=== PATIENT | male | born 1975 | race Two or more races ===

== ENCOUNTER 2019-01-07 08:33 | Inpatient (IN) | payer OTHER ==
[~2019-01-07] VITALS: Ht 172.7 cm; Wt 114.3 kg
[2019-01-07 09:33] LABS: BASOPHILS % (AUTO) 0.5 % (0.0-2.0); EOSINOPHILS % (AUTO) 1.5 % (0.0-6.0); HEMATOCRIT 48 % (39-51); LYMPHOCYTES # (AUTO) 1.8 /CMM (0.8-4.8); LYMPHOCYTES % (AUTO) 29.3 % (20.0-44.0); MEAN CORPUSCULAR HGB CONC 34 g/dl (31.0-36.0); MEAN CORPUSCULAR VOLUME 89 fL (80-96); MONOCYTES # (AUTO) 0.4 /CMM (0.1-1.30); MONOCYTES % (AUTO) 7.3 % (2.0-12.0); NEUTROPHILS # (AUTO) 3.7 /CMM (1.8-8.9); NEUTROPHILS % (AUTO) 61.4 % (43.0-81.0); PLATELET COUNT (AUTO) 207 /CMM (150-450); RED BLOOD CELL COUNT(AUTO) 5.36 MIL/uL (4.5-6.0)
[2019-01-07 09:44] LABS: BILIRUBIN,TOTAL 0.5 mg/dL (0.2-1.0); CALCIUM, SERUM 8.8 mg/dL (8.5-10.1); CREATININE 0.8 mg/dL (0.6-1.3); TOTAL PROTEIN, SERUM 7.2 g/dL (6.4-8.2)
[2019-01-07 09:45] LABS: BILIRUBIN,URINE Negative (NEGATIVE); BLOOD, URINE Negative Ery/uL (NEGATIVE); COLOR,URINE Yellow (YELLOW); KETONES,URINE Negative (NEGATIVE); LEUKOCYTE ESTERASE ,URINE Negative (NEGATIVE); NITRITE, URINE Negative (NEGATIVE); PH,URINE 8.5 (5.0-8.0); PROTEIN,URINE Negative (NEGATIVE); UGLUCOSE Negative (NEGATIVE); UROBILINOGEN,URINE 0.2 EU/dL (0.2)
[2019-01-07 09:47] LABS: APPEARANCE,URINE CLEAR (CLEAR)
[2019-01-07] MEDS ORDERED: FENTANYL PF 250MCG/5ML AMPUL ONE ×2 (10:02)
[2019-01-07] MEDS ORDERED: MIDAZOLAM HCL 2 MG/2ML VIAL ONE (10:02)
[2019-01-07] MEDS ORDERED: FAMOTIDINE/PF INJ 20 MG/2 ML VIAL IV ONE (10:03)
[2019-01-07] MEDS ORDERED: ROCURONIUM BROMIDE 50 MG/5 ML ONE (10:04)
[2019-01-07] MEDS ORDERED: MEPERIDINE HCL/PF 100 MG/ML DISP.SYRIN ONE (10:04)
[2019-01-07] MEDS ORDERED: GELATIN SPONGE,ABSORBABLE 1 EA SPONGE TP ONE (10:18)
[2019-01-07] MEDS ORDERED: CEFAZOLIN 1 GM ONE (10:19)
[2019-01-07] MEDS ORDERED: THROMBIN (BOVINE) 5,000 UNITS VIAL TP ONE (10:19)
[2019-01-07] MEDS ORDERED: HEPARIN SODIUM, PORCINE 5000 UNITS/1 ML VIAL ONE (10:30)
[2019-01-07] MEDS ORDERED: BUPIVACAINE 0.5 % PF 150 MG/30 ML VIAL ONE (10:48)
[2019-01-07] MEDS ORDERED: HEMOSTATIC MATRIX 8 ML 1 EACH PAD MC ONE ×2 (11:03→12:38)
[2019-01-07] MEDS ORDERED: SEVOFLURANE 250 ML BOTTLE IH ONE (11:50)
[2019-01-07] MEDS ORDERED: VANCOMYCIN 1 GM VIAL ONE (16:01)
--- NOTE | 2019-01-07 17:45 | NUR ---
PATIENT RECEIVED FROM SURGERY ,S/P LUMBAR SURGERY PER DAY SURGERY AND MD NEED TO BE ADMITTED UNDER M/S,WILL ENDORSE TO NIGHT RN FOR CONTINUITY OF CARE AND ADMISSION.
[2019-01-07] MEDS: IV NS 0.9% 1,000 ML IV PRN (17:48)
[2019-01-07 18:00] VITALS: BP 138/69
[2019-01-07] MEDS ORDERED: ZOLPIDEM TARTRATE 5 MG TABLET PO PRN ×2 (18:00→19:00)
[2019-01-07] MEDS ORDERED: ONDANSETRON HCL/PF 4 MG/2 ML VIAL IVP PRN ×2 (18:00→19:00)
[2019-01-07] MEDS ORDERED: CYCLOBENZAPRINE 10 MG TABLET PO PRN (18:00)
[2019-01-07] MEDS ORDERED: ACETAMINOPHEN 325 MG TABLET PO PRN ×2 (18:00→19:00)
[2019-01-07] MEDS: HYDROMORPHONE MDV 30 MG in IV NS 0.9% 15 ML, PCA TOTAL VOLUME 1 BAG IV PRN ×3 (18:05)
[2019-01-07] MEDS ORDERED: KEY,NONCONTROL,TO KEEP IN PYXI 1 EA MC ONE (18:10)
--- NOTE | 2019-01-07 18:15 | NUR ---
CLARIFIED WITH PATIENT HAS CONSULT WITH HOSPITALIST,PER MD NIGHT OYSTER CULTIVATOR WILL ADRESS PATIENT.
--- NOTE | 2019-01-07 18:17 | NUR ---
PRIMARY RN PREPARING PATIENT ELECTRICAL AND RADIO MOCK UP MECHANIC.
--- NOTE | 2019-01-07 18:31 | NUR ---
DR. ARTEAGA WILL SEE PATIENT NOW.
--- NOTE | 2019-01-07 18:41 | NUR ---
PATIENT SEEN AND EVALUATED BY DR. ARTEAGA
[2019-01-07 18:45] VITALS: BP 135/51
[2019-01-07] MEDS ORDERED: TIZA4TAB5 PO (18:45)
[2019-01-07] MEDS ORDERED: TRAM50TA2 PO (18:45)
[2019-01-07] MEDS ORDERED: CYCL10TA9 PO (18:45)
[2019-01-07] MEDS ORDERED: MAGNESIUM HYDROXIDE 30 ML UDC PO PRN (19:00)
[2019-01-07] MEDS ORDERED: Z GUARD REMEDY 2 OZ OINT TP PRN (19:00)
[2019-01-07] MEDS ORDERED: MAG HYDROX/AL HYDROX/SIMETH 30 ML UDC PO PRN (19:00)
[2019-01-07] MEDS ORDERED: MORPHINE SULFATE INJ 2 MG/ML DISP.SYRIN IV PRN (19:00)
[2019-01-07] MEDS ORDERED: oxyCODONE/APAP (5/325 MG) 1 UDTAB TABLET PO PRN ×2 (19:00)
[2019-01-07] MEDS ORDERED: HYDROCODONE/APAP 5/325MG 1 EACH TABLET PO PRN (19:00)
--- NOTE | 2019-01-07 19:00 | NUR ---
MS RN NOTES PT SEEN AND EVALUATED BY PAIN SPECIALIST .
--- NOTE | 2019-01-07 19:15 | NUR ---
RN OPENING NOTES: PATIENT IN BED, AWAKE, AND VERBALLY RESPONSIVE. NO RESPIRATORY DISTRESS. NO PAIN. A&OX4. PATIENT ON REGULAR DIET. RIGHT AC IV SITE PATENT AND INTACT. BED IN LOWEST POSITION. SAFETY MEASURES IMPLEMENTED. CALL LIGHT PLACED WITHIN REACH. WILL CONT. TO MONITOR.
--- NOTE | 2019-01-07 19:27 | NUR ---
MS RN END OF SHIFT NOTES PT IN ROOM HOB ELEVATED 30 DEG PER PT REQUEST. VS STABLE BUT WITH TACHYCARDIA. PT ON B OPERATOR PUMP; DISCOMFORT WITH MOVEMENT. FAMILY AT BEDSIDE. PT ON 2L NC. NO BLEEDING NOTED FROM SX SITES. PT ABLE TO MOVE LEGS AND HAVE SENSATION BILAT EXTREMITIES. SAFETY MEASURES IN PLACE. PULSE OXIMETRY IN PLACE. ENDORSED TO PM NURSE FOR ANGEL.
[2019-01-07 20:00] VITALS: BP 122/62
[2019-01-07] MEDS: FAMOTIDINE (20 MG) 20 MG TABLET PO SCH (20:05)
[2019-01-07] MEDS: CEFAZOLIN 2 GM in IV D5W 100 ML IV SCH (22:53)
[2019-01-08 04:00] VITALS: BP 103/53
[2019-01-08] MEDS: IV NS 0.9% 1,000 ML IV PRN ×3 (04:59→23:49)
--- NOTE | 2019-01-08 06:30 | NUR ---
RN NOTES: PATIENT SEEN BY DR. HA AND ORDERED TO REMOVE DORMAN CATHETER AND IMPLEMENT PHYSICAL THERAPY TODAY. REMOVED DORMAN CATHETER AND TOLERATED WELL BY PATIENT. NO BLEEDING OR PAIN NOTED. WILL CONT. TO MONITOR FOR CHANGES.
[2019-01-08 06:32] LABS: HEMATOCRIT 36 % (39-51); LYMPHOCYTES # (AUTO) 0.7 /CMM (0.8-4.8); LYMPHOCYTES % (AUTO) 6.1 % (20.0-44.0); MEAN CORPUSCULAR HGB CONC 34 g/dl (31.0-36.0); MEAN CORPUSCULAR VOLUME 89 fL (80-96); MONOCYTES # (AUTO) 1.3 /CMM (0.1-1.30); NEUTROPHILS # (AUTO) 9.9 /CMM (1.8-8.9); NEUTROPHILS % (AUTO) 82.9 % (43.0-81.0); PLATELET COUNT (AUTO) 184 /CMM (150-450); RED BLOOD CELL COUNT(AUTO) 4.01 MIL/uL (4.5-6.0); WHITE BLOOD COUNT (AUTO) 11.9 K/uL (4.3-11.0)
[2019-01-08 06:53] LABS: CALCIUM, SERUM 7.5 mg/dL (8.5-10.1); CREATININE 0.9 mg/dL (0.6-1.3); MAGNESIUM 1.8 mg/dL (1.8-2.4); PHOSPHORUS 2.4 mg/dL (2.5-4.9); POTASSIUM 3.7 mmol/L (3.5-5.1)
--- NOTE | 2019-01-08 07:00 | NUR ---
RN CLOSING NOTES: PATIENT IN BED, AWAKE, AND VERBALLY RESPONSIVE. A&OX4. NO SOB. NO PAIN. PATIENT ON RACK WORKER PUMP. HE RECEIVED TOTAL OF 1.2 MG. NO BOLUS GIVEN. RIGHT AC IV SITE 20G PATENT AND INTACT RUNNING 100 MLS/HR. CONT. ON NEUROCHECK. NO CHANGES IN BASELINE LOC. SAFETY PRECAUTIONS IMPLEMENTED. ENDORSED TO NEXT SHIFT NURSE FOR CONTINUITY OF CARE.
--- NOTE | 2019-01-08 07:05 | NUR ---
RN INITIAL NOTE PATIENT IN BED, AWAKE AND ALERT X4. PATIENT WAS FROM DAY SURGERY AND WAS S/P SPINAL FUSION. HAS 2L NC, SATING WELL AT 100%. PER NOC SHIFT, DORMAN CATH HAS BEEN DC'D PER MD ORDER. HAS A RIGHT AC #20 WITH NS AT 100 ML/HR. HAS Q4 NEURO CHECKS. CORPORATE LOGISTICS MANAGER PUMP WITH DILAUDID. PATIENT AWARE HOW TO USE CORPORATE LOGISTICS MANAGER. NO COMPLAINS OF ANY PAIN NOR SOB AT THIS TIME. BED LOCKED AND IN LOWEST POSITION. CALL LIGHT WITHIN REACH. FAMILY AT BEDSIDE
--- NOTE | 2019-01-08 07:30 | NUR ---
RN NOTE PATIENT WAS GIVEN REGULAR DIET FOR BREAKFAST. PER PATIENT, MD TOLD HIM THAT HE IS STILL ON CLEAR LIQUIDS. CHECKED DR HA'S NOTES AND IT WAS STATED THAT PATIENT IS ON CLEARS AND WILL ADVANCE TOLERATED. DR GUILLEN ORDERED CLEARS AT ~[address] ARTEAGA ORDERED REGULAR AT ~1830. PER PATIENT HE WANTS TO TRY CLEARS FIRST AND WILL TELL ME IF HE GETS NAUSEATED OR NOT.
[2019-01-08] MEDS: CEFAZOLIN 2 GM in IV D5W 100 ML IV SCH ×3 (07:36→23:44)
[2019-01-08 08:00] VITALS: BP 107/65
[2019-01-08] MEDS: FAMOTIDINE (20 MG) 20 MG TABLET PO SCH ×2 (08:30→20:18)
[2019-01-08] MEDS: MULTIVITAMINS,THERAGRAN 1 UDTAB TABLET PO SCH (08:30)
[2019-01-08] MEDS: DOCUSATE SODIUM 250 MG CAPSULE PO SCH ×2 (08:30→16:00)
--- NOTE | 2019-01-08 11:47 | NUR ---
RN NOTE SOMEONE FROM [employer] CALLED, HER NAME IS PRACHI. SHE WAS ASKING TO FAX OVER THE PATIENT'S H AND P AND ORDERS. PER PRACHI, THEY ARE THE ONE WHO WILL ARRANGE THE PATIENT'S HOME HEALTH SERVICES. HER CONTACT # IS [phone] AND FAX # [phone]. MORTGAGE LOAN OFFICER MADE AWARE DR ARTEAGA AT BEDSIDE, PER DR HA'S NOTES - DC PLANNING TONIGHT OR TOMORROW MORNING. PER DR ARTEAGA WAIT TO DC THE ICE SKATING INSTRUCTOR PUMP .
[2019-01-08] MEDS ORDERED: NEUTRA PHOS 1 POWD.PACKET PO ONE (13:30)
[2019-01-08 16:00] VITALS: BP 102/54
--- NOTE | 2019-01-08 18:47 | NUR ---
RN CLOSING NOTE PATIENT IN BED, AWAKE AND VERY ALERT. ON LIBRARY TECHNICIAN PUMP, WILL CHANGE THE BAG BEFORE END OF SHIFT. RECEIVED DILAUDID LIBRARY TECHNICIAN FROM PHARMACY. ALL MEDS GIVEN, REPLACED PHOS PO. NS RUNNING AT 100 ML/HR. ALL NEEDS MET. PT EVAL DONE TODAY. BED LOCKED AND IN LOWEST POSITION. CALL LIGHT WITHIN REACH. WILL ENDORSE TO NOC SHIFT FOR ANGEL
[2019-01-08] MEDS: HYDROMORPHONE MDV 30 MG in IV NS 0.9% 15 ML, PCA TOTAL VOLUME 1 BAG IV PRN ×3 (18:55)
[2019-01-08] MEDS ORDERED: KEY,NONCONTROL,TO KEEP IN PYXI 1 EA MC ONE (19:26)
--- NOTE | 2019-01-08 19:30 | NUR ---
RN opening pm NOTE REPORT RECIEVED FROM MEL PETER. PATIENT IN BED, AWAKE AND VERY ALERT. ON BOARD ATTENDANT PUMP, MEL STATES SHE WILL CHJANGE BAG PRIOR TO END OF SHIFT. NS RUNNING AT 100 ML/HR. WITH NO S/S OF COMPLICATIONS TO RIGHT AC. BED LOCKED AND IN LOWEST POSITION. CALL LIGHT WITHIN REACH. PATIENT VERBALZIED UNDERSTANDING TO CALL FOR ASSISTANCE NEEDED,
--- NOTE | 2019-01-08 19:43 | NUR ---
RN NOTE CHANGED SURVEYING CREW STAKE RUNNER DILAUDID. BRITTANI SPENCER WITNESSED DISPOSAL.
[2019-01-08 20:01] VITALS: BP 119/70
--- NOTE | 2019-01-08 20:01 | NUR ---
jaimie hall in pyxis confirmation. spoke with dora gar and she said she returned plant cytologist hall to pyxis.
[2019-01-09] VITALS: BP 116/68
[2019-01-09 04:00] VITALS: BP 123/68
--- NOTE | 2019-01-09 06:27 | NUR ---
RN CLOSING pm NOTE PATIENT IN BED PATIENT WENT FOR A WALK WITH BRACE X2. HE REPORTING THAT HE FEELS GASSY. PT ENCOURAGED TO AMBULATE. NO BM SINCE 01/07/19. , AWAKE AND VERY ALERT. ON METER INSTALLER PUMP, BAG STILL CONTAINS 27.8 MG AT THIS TIME WITH A TOTAL OF 11 DOSES GIVEN ON DEMAND. NS RUNNING AT 100 ML/HR. WITH NO S/S OF COMPLICATIONS TO RIGHT AC. BED LOCKED AND IN LOWEST POSITION. CALL LIGHT WITHIN REACH. PATIENT VERBALZIED UNDERSTANDING TO CALL FOR ASSISTANCE NEEDED, WILL ENDORSE TO AM SHIFT.
[2019-01-09] MEDS: CEFAZOLIN 2 GM in IV D5W 100 ML IV SCH ×3 (06:40→22:55)
[2019-01-09 07:08] LABS: BASOPHILS % (AUTO) 0.1 % (0.0-2.0); HEMATOCRIT 37 % (39-51); HEMOGLOBIN 12.1 g/dL (13.5-17.5); LYMPHOCYTES # (AUTO) 1.1 /CMM (0.8-4.8); LYMPHOCYTES % (AUTO) 7.3 % (20.0-44.0); MEAN CORPUSCULAR HGB CONC 33 g/dl (31.0-36.0); MEAN CORPUSCULAR VOLUME 89 fL (80-96); MONOCYTES # (AUTO) 1.6 /CMM (0.1-1.30); MONOCYTES % (AUTO) 10.5 % (2.0-12.0); NEUTROPHILS # (AUTO) 12.2 /CMM (1.8-8.9); NEUTROPHILS % (AUTO) 82.1 % (43.0-81.0); PLATELET COUNT (AUTO) 197 /CMM (150-450); RED BLOOD CELL COUNT(AUTO) 4.13 MIL/uL (4.5-6.0); WHITE BLOOD COUNT (AUTO) 14.9 K/uL (4.3-11.0)
[2019-01-09 07:21] LABS: CALCIUM, SERUM 8.2 mg/dL (8.5-10.1); CREATININE 0.8 mg/dL (0.6-1.3); PHOSPHORUS 1.4 mg/dL (2.5-4.9); POTASSIUM 3.8 mmol/L (3.5-5.1)
[2019-01-09 08:10] VITALS: BP 126/76
[2019-01-09] MEDS: DOCUSATE SODIUM 250 MG CAPSULE PO SCH ×2 (08:51→17:12)
[2019-01-09] MEDS: FAMOTIDINE (20 MG) 20 MG TABLET PO SCH ×2 (08:51→22:19)
[2019-01-09] MEDS: MULTIVITAMINS,THERAGRAN 1 UDTAB TABLET PO SCH (08:51)
[2019-01-09] MEDS: IV NS 0.9% 1,000 ML IV PRN ×2 (12:35→23:02)
[2019-01-09] MEDS ORDERED: KEY,NONCONTROL,TO KEEP IN PYXI 1 EA MC ONE (12:39)
--- NOTE | 2019-01-09 14:19 | NUR ---
Left message for Doctor Elpidio regarding white blood cell count increase. Kelvin Car RN
[2019-01-09] MEDS ORDERED: K PHOS NEUTRAL 250 MG TABLET PO ONE (15:30)
[2019-01-09 16:00] VITALS: BP 114/66
[2019-01-09 20:00] VITALS: BP 120/67
--- NOTE | 2019-01-09 20:29 | NUR ---
MS/RN RECEIVE PATIENT AWAKE, ALERT, ORIENTED, COMFORTABLE, NO C/O PAIN, NO DISTRESS NOTED, CALL LIGHT IN REACH. WILL MONITOR.
[2019-01-10 04:00] VITALS: BP 128/74
--- NOTE | 2019-01-10 06:30 | NUR ---
MS/RN PATIENT APPEAR SLEEPING AT THIS TIME, APPEAR COMFORTABLE, NO SIGNS OF DISTRESS NOTED, CALL LIGHT IN REACH, ALL NEEDS ATTENDED AT THIS TIME, WILL CONTINUE TO MONITOR.
[2019-01-10 07:03] LABS: BASOPHILS % (AUTO) 0.2 % (0.0-2.0); EOSINOPHILS % (AUTO) 0.4 % (0.0-6.0); HEMATOCRIT 31 % (39-51); HEMOGLOBIN 10.7 g/dL (13.5-17.5); LYMPHOCYTES # (AUTO) 1.2 /CMM (0.8-4.8); LYMPHOCYTES % (AUTO) 12.1 % (20.0-44.0); MEAN CORPUSCULAR HGB CONC 34 g/dl (31.0-36.0); MEAN CORPUSCULAR VOLUME 88 fL (80-96); MONOCYTES # (AUTO) 0.9 /CMM (0.1-1.30); MONOCYTES % (AUTO) 8.8 % (2.0-12.0); NEUTROPHILS % (AUTO) 78.5 % (43.0-81.0); PLATELET COUNT (AUTO) 161 /CMM (150-450); RED BLOOD CELL COUNT(AUTO) 3.56 MIL/uL (4.5-6.0); WHITE BLOOD COUNT (AUTO) 10.1 K/uL (4.3-11.0)
[2019-01-10 07:26] LABS: CALCIUM, SERUM 7.6 mg/dL (8.5-10.1); CREATININE 0.7 mg/dL (0.6-1.3); PHOSPHORUS 1.4 mg/dL (2.5-4.9); POTASSIUM 3.8 mmol/L (3.5-5.1)
--- NOTE | 2019-01-10 07:30 | NUR ---
MS RN NOTES RECEIVED PT IN BED A/OX4 FOLLOWS COMMANDS. NO PAIN OR DISCOMFORT NOTED AT THIS TIME. IV SITE PATENT FLUSHED WELL. BED AT LOWEST POSITION LOCKED CALL LIGHT WITHIN REACH. WILL CONTINUE TO MONITOR.
[2019-01-10 08:00] VITALS: BP 119/69
[2019-01-10] MEDS: MULTIVITAMINS,THERAGRAN 1 UDTAB TABLET PO SCH (08:28)
[2019-01-10] MEDS: DOCUSATE SODIUM 250 MG CAPSULE PO SCH ×2 (08:28→17:13)
[2019-01-10] MEDS: FAMOTIDINE (20 MG) 20 MG TABLET PO SCH (08:28)
[2019-01-10] MEDS ORDERED: Sodium Phosphate 15 MMOL in IV D5W 250 ML IV ONE (11:00)
[2019-01-10 12:00] VITALS: BP 119/72
--- NOTE | 2019-01-10 12:38 | NUR ---
dr. buitrago notified patient with difficult vein and does not want to be stick again,discussed labs and ok to change phos replacement to po and d/c iv patient taking oral food already.
[2019-01-10] MEDS ORDERED: K PHOS NEUTRAL 250 MG TABLET PO ONE (13:00)
--- NOTE | 2019-01-10 13:59 | NUR ---
OK PER DR. GUILLEN TO DISCHARGE HOME PATIENT,DR. ARTEAGA NOTIFIED HE WILL PUT DISCHARGE ORDER.
== END 2019-01-10 19:05 | disposition home health service (06) | DRG 454 ==
LOC: DS 08:33 → MEDSG1 08:35
PROVIDERS: ADMIT Family Medicine; ATTEND Family Medicine
PROC: 01NB0ZZ Release Lumbar Nerve, Open Approach (ICD-10-PCS; principal; 2019-01-07)
PROC: 01NR0ZZ Release Sacral Nerve, Open Approach (ICD-10-PCS; principal; 2019-01-07)
PROC: 0SG0071 Fusion of Lumbar Vertebral Joint with Autologous Tissue Substitute, Posterior Approach, Posterior Column, Open Approach (ICD-10-PCS; principal; 2019-01-07)
PROC: 0SG00A0 Fusion of Lumbar Vertebral Joint with Interbody Fusion Device, Anterior Approach, Anterior Column, Open Approach (ICD-10-PCS; principal; 2019-01-07)
PROC: 0SG30A0 Fusion of Lumbosacral Joint with Interbody Fusion Device, Anterior Approach, Anterior Column, Open Approach (ICD-10-PCS; principal; 2019-01-07)
PROC: 00UT07Z Supplement Spinal Meninges with Autologous Tissue Substitute, Open Approach (ICD-10-PCS; principal; 2019-01-07)
PROC: 0SG3071 Fusion of Lumbosacral Joint with Autologous Tissue Substitute, Posterior Approach, Posterior Column, Open Approach (ICD-10-PCS; principal; 2019-01-07)
DX: M43.17 Spondylolisthesis, lumbosacral region (principal); D62 Acute posthemorrhagic anemia; D72.829 Elevated white blood cell count, unspecified; E83.39 Other disorders of phosphorus metabolism; M47.26 Other spondylosis with radiculopathy, lumbar region; M51.27 Other intervertebral disc displacement, lumbosacral region; M43.26 Fusion of spine, lumbar region; M51.16 Intervertebral disc disorders with radiculopathy, lumbar region; G96.12 Meningeal adhesions (cerebral) (spinal)
CPT/HCPCS: 36415; 72020-TC; 80048-TC; 80053-TC; 80061-TC; 81000-TC; 83735-TC; 84100-TC; 85025-TC; 85730-TC; 86850-TC; 87081-TC; 88304-TC; 88311-TC; 97110-TC; 97116-TC; 97530-TC; A4216; A9563; G0378; J0690; J1100; J1170; J1644; J2175; J2250; J2405; J2704; J2710; J2765; J3010; J3370; J3490; J7030; J7050; J7060